=== PATIENT | male | born 1960 | race Caucasian/White ===

== ENCOUNTER 2018-07-28 06:31 | Day surgery (SDC) | payer BC ==
[2018-07-27 12:17] VITALS: BMI 36.6
--- NOTE | 2018-07-27 18:40 | PREOP ---
DATE OF ADMISSION: 07/28/2018 DATE OF SURGERY: 07/28/2018 ADMISSION DIAGNOSIS: Pansinusitis, nasal polyps, anosmia. HISTORY OF PRESENT ILLNESS: This 58-year-old gentleman has a longstanding history of nasal and sinus problems. He underwent nasal surgery to remove polyps in 1998. He has had chronic recurrent sinusitis for at least the past 15 years. He has been managed with numerous antibiotics as well as oral steroids and nasal steroid sprays. He has chronic congestion, sinus discomfort, and anosmia. He had formal allergy testing which demonstrates sensitivity to weed pollen and dust mites. Exam demonstrates marked nasal polyposis with significant obstruction of the nasal airwaves. CT scan demonstrates chronic pansinusitis. He is now brought to surgery for treatment. PAST MEDICAL HISTORY: Primary medical doctor, Dr. Eric Martinez. Patient does have a history of hypertension for which he takes amlodipine. He has had back surgery in the past, L2 and 3, and underwent general anesthesia without reported problems. He also had nasal surgery in 1998 without reported problems. The patient does have a history of deep vein thrombosis following his spinal surgery and then developed a pulmonary embolism. He was treated with anticoagulation, primarily Eliquis as well as an IVC filter. He has been now off of the Eliquis for at least one year. Other bleeding history is negative. Family history is negative for bleeding or anesthesia problems. Patient does not smoke. Present medications include amlodipine, atenolol, hydrochlorothiazide, methylprednisolone. He has also been on omeprazole and Singulair. He uses allergy medications including azelastine spray, cetirizine, fluticasone spray. ALLERGIES TO MEDICATIONS: None known. PHYSICAL EXAMINATION: GENERAL: Patient is a well developed male in no acute distress. HEENT: Head is normal. Eyes are clear. Ears are unremarkable. The voice is hyponasal. The nose has marked nasal polyposis with near-total obstruction of the nasal pharyngeal airways, the nasal septum is poorly seen because of the degree of nasal obstruction. Oral cavity and oropharynx are unremarkable. DATA: Preoperative labs are pending. CT scan of the paranasal sinuses performed at [facility] demonstrates chronic pansinusitis. There is significant polyposis present . There does not appear to be any significant bony erosion. IMPRESSION: Chronic pansinusitis with nasal polyposis and anosmia. PLAN: Bilateral endoscopic sinus surgery to address ethmoid maxillary sphenoid and frontal sinuses with image guidance. INFORMED CONSENT: Patient understands the indications, alternatives, nature of risks and benefits of proposed surgery, potential complications including but not limited to anesthesia, bleeding, infection, recurrence, numbness, reduced smell sense, long-term eye injury and brain injury were discussed in detail. He understands and accepts these risks and wished to proceed with surgery. Questions answered fully. ROSA ELENA GARCIA M.D. [id number]
[2018-07-28] MEDS ORDERED: fentaNYL CITRATE 250 MCG/5 ML VIAL ONE (06:57)
[2018-07-28] MEDS ORDERED: ROCURONIUM BROMIDE 50 MG/5 ML VIAL ONE (06:57)
[2018-07-28] MEDS ORDERED: MIDAZOLAM HCL 2 MG/2 ML SINGLE DOSE VIAL ONE (06:57)
[2018-07-28] MEDS ORDERED: PROPOFOL 20 ML ONE (06:57)
[2018-07-28] MEDS ORDERED: LIDOCAINE HCL/PF 2% SDV 5ML VIAL ONE (06:59)
[2018-07-28] MEDS ORDERED: DEXAMETHASONE SOD PHOSPHATE 4 MG/1 ML VIAL ONE (06:59)
[2018-07-28] MEDS ORDERED: COCAINE HCL 4% TOPICAL SOLUTION 4 ML BOTTLE TP ONE ×2 (07:32→08:22)
--- NOTE | 2018-07-28 07:46 | HP ---
History & Physical Update - History History: No Change - Physical Physical: No Change - Assessment Assessment: No Change - Plan Plan: No Change
--- NOTE | 2018-07-28 07:50 | OP ---
Operative Note - Note: Operative Date: 07/28/18 (28092) Pre-Operative Diagnosis: chronic bob sinusitis, nasal polyps, anosmia Operation: bilateral endoscopic:1)ethmoidectomy anterior and posterior, 2) maxillary antrostomy with removal of tissue, 3) frontal sinus exploration, 4) sphenoidotomy, 5) nasal poypectomy, extensive, image guidance Findings: extensive nasal polyposisi with obstruction, left greater than right, involving middle meati, inferior meati, sphenoethmoid recesses, and nasopharynx (left) chronic sinusitis with polyposis especially ethmoid and maxillary sinuses, thick mucus from frontal and sphenoid sinuses Implants: none Post-Operative Diagnosis: Same as Pre-op Surgeon: Miguel A Bustamante Anesthesiologist/LEAD DATABASE DEVELOPER: Su العراقي Anesthesia: General Specimens Removed: left nasal polyps, ethmoid and maxillary sinus tissue. right nasal polyps, ethmoid and maxillary sinus tissue. right and left ethmoid tissue (trap) Estimated Blood Loss (mls): 30 Blood Volume Replaced (mls): 0 Fluid Volume Replaced (mls): 600 Operative Report Dictated: Yes
[2018-07-28] MEDS ORDERED: LIDOCAINE 1%/EPI 1:100000 (50 ML MULTI DOSE VIAL) NR ONE ×2 (08:44)
[2018-07-28] MEDS ORDERED: DESFLURANE GAS 240 ML BOTTLE IH ONE (09:05)
[2018-07-28] MEDS ORDERED: GLYCOPYRROLATE 0.2 MG/1 ML VIAL ONE (09:17)
[2018-07-28] MEDS ORDERED: NEOSTIGMINE METHYLSULFATE 0.5 MG/ML - 10 ML MDV ONE (09:17)
[2018-07-28] MEDS ORDERED: SUCCINYLCHOLINE CHLORIDE 200 MG/10 ML VIAL ONE (09:26)
[2018-07-28] MEDS ORDERED: oxyCODONE HCL 5 MG TABLET PO PRN (10:04)
[2018-07-28] MEDS ORDERED: ACETAMINOPHEN 325 MG TABLET (FP) PO PRN (10:04)
[2018-07-28] MEDS ORDERED: LACTATED RINGERS SOLUTION 1,000 ML IV SCH (10:15)
[2018-07-28] MEDS ORDERED: ONDANSETRON 4 MG/2 ML VIAL IVPUSH PRN (10:35)
--- NOTE | 2018-07-28 11:51 | OP ---
DATE OF OPERATION: 07/28/2018 PREOPERATIVE DIAGNOSIS: Chronic pansinusitis with extensive nasal polyposis and anosmia. POSTOPERATIVE DIAGNOSIS: Chronic pansinusitis with extensive nasal polyposis and anosmia. PROCEDURE: 1. Bilateral endoscopic ethmoidectomy, anterior and posterior. 2. Bilateral endoscopic maxillary antrostomy with removal of tissue. 3. Bilateral frontal sinus exploration. 4. Bilateral endoscopic sphenoidotomy. 5. Extensive nasal polypectomy. 6. Image guidance. SURGEON: Rosa Elena Bustamante MD ANESTHESIOLOGIST: Su العراقي CRNA ANESTHESIA: General via endotracheal tube. INDICATIONS: This 58-year-old male has had a long history of nasal and sinus problems. He underwent nasal surgery to remove polyps in 1998. He has since had recurrence and chronic obstruction due to extensive nasal polyposis. He has been maintained on medical therapy with intermittent antibiotics as well as oral steroids. Surgery had been delayed in the past because of spinal surgery with postoperative DVT/pulmonary embolism and long-term anticoagulation. He has been on anticoagulants for at least [address] scan demonstrates chronic pansinusitis with polyposis. He is now brought to surgery for treatment. FINDINGS: Extensive nasal polyposis, left greater than the right, involving the nasopharynx as well. Chronic sinusitis. PROCEDURE: The patient was brought to the operating room and placed on the operating table in supine position. General endotracheal anesthesia was induced to a satisfactory level. He was prepped and draped in the usual fashion for surgery. Proper DVT prophylaxis with compression stockings was performed. The patient was prepped and draped in the usual fashion. Lidocaine 1% with epinephrine 1:100,000 was infiltrated into the visual nasal polyps. Cocaine 4% was placed within the nasal cavities. The [employer] Navigation System was utilized with the patient's CT data. He was registered, and this navigation was used intermittently throughout the case in order to identify anatomic landmarks and to guide dissection. The pledgets were removed. Nasal endoscopy was performed with a 0-degree telescope. Extensive nasal polyposis was seen, left greater than right. The middle turbinates and lateral nasal street were nonvisible. Therefore, extensive nasal polypectomy was initially performed utilizing the ethmoid forceps as well as the Xomed microdebrider. On the left side, significant polyps were removed from the anterior and nasal cavity, inferior meatus, middle meatus, superior meatus, as well as the sphenoethmoidal recess, and the nasopharynx. Once landmarks were able to be visualized, lidocaine with epinephrine was infiltrated into the middle turbinate and lateral nasal wall. A dry cottonoid was placed in the middle meatus. Polypectomy was then performed on the right side using the same instrumentation. Significant polyps were removed from the inferior meatus, middle meatus, and sphenoid/ethmoid recess. Minimal oozing was noted. Lidocaine with epinephrine was infiltrated in the middle turbinate and lateral nasal wall and additional cocaine was then placed on the pledge in the middle meatus. Attention was returned to the left paranasal sinuses. Anterior and posterior ethmoidectomy was performed utilizing the ethmoid forceps as well as the Xomed microdebrider. The lamina papyracea and the fovea ethmoidalis were preserved. More posteriorly, the sphenoethmoidal region was approached. The patient sphenoid was identified, and the sphenoid ostium was traversed and enlarged. Thick mucus was aspirated from the sphenoid sinus. Next, the maxillary sinus was treated. The ball-tipped seeker was used to identify the ostium. This was then enlarged with the forward and backbiting forceps. The interior of the maxillary sinus was visualized with the 70-degree scope, and significant polypoid tissue was removed using the giraffe forceps. Hemostasis was excellent. There was some oozing from the posterior ethmoid which was controlled with suction cautery. Finally, the left frontal sinus was approached. A 70-degree scope was used, and polypoid tissue was removed using the giraffe forceps. The suction could then be passed into the frontal sinus, and this was confirmed with navigation. Attention was then turned toward the right paranasal sinuses. Anterior and then posterior ethmoidectomy was performed with the ethmoid forceps and the microdebrider. Again, the lamina papyracea and the fovea ethmoidalis were preserved. The sphenoethmoidal region was then approached. The sphenoid sinus was entered, and sphenoidotomy was created. Again, thick mucus was aspirated. Attention was then turned toward the right maxillary sinus. The ball-tipped seeker was used to identify the natural ostium. This was then enlarged using the backbiting and upbiting forceps. Again, the sinus was then visualized with the 70-degree scope. Thick mucus was aspirated, and polypoid tissue was removed. Finally, the right frontal sinus was addressed. The frontal recess was examined with the 70-degree scope. The most anterior ethmoid cells were removed. The frontal recess was opened, and the frontal ostium was identified. The curved suction could be passed into the right frontal sinus and thick mucus aspirated. Location was confirmed with navigation. With all the sinuses opened, spot electrocautery was used for hemostasis. After achieving excellent hemostasis, NasoPore dressings were placed in the right and left ethmoid beds. Cotton balls were placed at the nostrils. Patient tolerated the procedure well. He was extubated. There was mild oozing which was self-limited and did not require any additional packing. He was then transferred to the PACU in stable condition. Estimated blood loss was 30 mL. He received crystalloid during the procedure. Specimens included left nasal polyps, ethmoid maxillary tissue; and right nasal polyps, ethmoid maxillary tissue; as well as right and left ethmoid tissue from the suction trap. There were no complications. ROSA ELENA BUSTAMANTE M.D. [id number]
[2018-07-28 12:17] VITALS: BP 135/77; PULSE 73; TEMP 98.5
--- NOTE | 2018-07-30 13:30 | PATH ---
Surgical Pathology Report Patient Name: ELIDIA LUJAN [facility]. Rec. #: [id number] /Age/Gender: 1960 (Age: 58) / M Account: [id number] Location: [facility] SURGICAL Taken: 07/28/2018 Received: 07/28/2018 Reported: 07/30/2018 Physicians: Miguel A Bustamante M.D. Specimen(s) Received A: LEFT NASAL POLYP, ETHMOID TISSUE AND MAXILLARY TISSUE B: RIGHT NASAL POLYP, ETHMOID TISSUE AND MAXILLARY TISSUE C: RIGHT AND LEFT ETHMOID TISSUE Clinical History Chronic frontal sinusitis, ethmoidal sinusitis Final Diagnosis A. LEFT ETHMOID AND MAXILLARY SINUS WITH NASAL POLYP, CURETTING: CHRONIC SINUSITIS AND INFLAMMATORY POLYP. B. RIGHT ETHMOID AND MAXILLARY SINUS WITH NASAL POLYP, CURETTING: CHRONIC SINUSITIS AND INFLAMMATORY POLYP, AND ADMIXED FRAGMENTS OF BONE C. RIGHT AND LEFT ETHMOID SINUS, CURETTING: CHRONIC SINUSITIS WITH ADMIXED FRAGMENTS OF BONE. Electronically Signed Jonnie Ly M.D. Gross Description A. Received in formalin labeled "left nasal polyp and ethmoid tissue, maxillary tissue," is a 5.0 x 4.0 x 0.6 cm aggregate of abundant alejandra, irregular to polypoid portions of soft tissue. The largest polyp measures 3.3 cm in greatest dimension. The specimen is entirely submitted in 6 cassettes as follows: 1-multiple small polyps; 2-two whole polyps; 3-4-one bisected polyp; 5-6-one bisected polyp. B. Received in formalin labeled "right nasal polyp, ethmoid tissue, maxillary tissue," are 2 alejandra, polypoid portions of soft tissue measuring 1.7 x 0.7 x 0.3 cm and 2.5 x 0.9 x 0.3 cm. Also received within the same container is a 1.6 x 1.3 cm aggregate of alejandra soft tissue and cartilage fragments. The specimen is entirely submitted in 2 cassettes as follows: 1-two polyps; 2-remaining tissue fragments, following decalcification. C. Received in formalin labeled "right and left ethmoid tissue," is a 4.5 x 3.3 x 0.3 cm aggregate of alejandra soft tissue fragments. The formalin is filtered and the specimen is entirely submitted in one cassette. DL/07/29/2018 saudi/07/29/2018
== END 2018-07-28 12:10 | disposition home or self-care (01) ==
LOC: JASU-SURG 06:31
PROVIDERS: ATTEND Otolaryngology
PROC: 09DU4ZZ Extraction of Right Ethmoid Sinus, Percutaneous Endoscopic Approach (ICD-10-PCS; 2018-07-28)
PROC: 09BN8ZX Excision of Nasopharynx, Via Natural or Artificial Opening Endoscopic, Diagnostic (ICD-10-PCS; 2018-07-28)
PROC: 09DV4ZZ Extraction of Left Ethmoid Sinus, Percutaneous Endoscopic Approach (ICD-10-PCS; principal; 2018-07-28 08:00)
DX: J32.4 Chronic pansinusitis (principal); J33.9 Nasal polyp, unspecified; R43.0 Anosmia
CPT/HCPCS: 88304-TC; 88311-TC; 94760